=== PATIENT | female | born 1955 | race Caucasian/White ===

== ENCOUNTER 2020-08-18 18:19 | Emergency (ER) | payer OTHER ==
[~2020-08-18] VITALS: Ht 157.5 cm; Wt 65.8 kg
[2020-08-18] MEDS ORDERED: MOBIC15 MG PO (23:03)
[2020-08-18 23:21] VITALS: BP 117/74
== END 2020-08-18 23:29 | disposition home or self-care (01) ==
LOC: ER 18:19
DX: S33.5XXA Sprain of ligaments of lumbar spine, initial encounter (principal); M54.6 Pain in thoracic spine; X50.1XXA Overexertion from prolonged static or awkward postures, initial encounter; Y93.89 Activity, other specified; Y92.89 Other specified places as the place of occurrence of the external cause; Y99.9 Unspecified external cause status